=== PATIENT | female | born 1960 | race Caucasian/White ===

== ENCOUNTER → 2016-10-30 | Outpatient (CLI) | payer BC ==
--- NOTE | 2016-10-31 10:19 | HP ---
CHIEF COMPLAINT: The patient is here for her routine gynecologic exam. HPI: This is a 55-year-old G0 with an LMP of 1999. The patient states it has been about 15 years since her last pelvic exam. She did have a mammogram about one year ago which was benign. The patient states she has noticed some vulvar pruritus for about three weeks. She noticed this soon after riding a bike and she believes that the bike ride irritated this area. She states she notices it mostly near the clitoris. She denies any vaginal discharge or dysuria. She did try Nystatin cream but this did not seem to help. She denies any postmenopausal bleeding. PAST MEDICAL HISTORY: Chronic hypertension. MEDICATIONS: Clonidine 0.3 mg daily, losartan, potassium 100/12.5 mg one daily. She also used Nystatin cream as above. ALLERGIES: No known drug allergies. PAST SURGICAL HISTORY: Laparotomy for ovarian cysts in 1993. Cyst was drained from under the left breast in 1997. PAST AUTOMOTIVE PARTS COORDINATOR HISTORY: She does have a history of ovarian cysts in the past. She has no history of STDs. She has been menopausal since 1999. SOCIAL HISTORY: She quit smoking in 2006. She rarely drinks alcohol and thinks she drinks about 2 drinks per year. She states she previously was a heavy drinker but stopped her heavy drinking in about 2012. She denies drug use. She is but is not sexually active. She states this is because of her 's health issues. She does volunteer work. FAMILY HISTORY: Mother had CHF. Grandmother had diabetes. She denies family history of cancer of the breasts, uterus, ovaries or colon. REVIEW OF SYSTEMS: She has lost about 20 pounds over the last year with diet and exercise. She denies respiratory, cardiac or GI problems. PHYSICAL EXAM: Blood pressure 159/75, height 5'5", weight 190 pounds, temperature 96.9, pulse 72. This is a well-developed, heavyset white female who is alert and oriented x3, in no acute distress. HEENT: Within normal limits. NECK: Supple without mass or thyromegaly. CHEST AND LUNGS: Clear to auscultation. HEART: Regular rate and rhythm. BREASTS: Without mass or discharge. AXILLARY: Negative for adenopathy. BACK: Negative for CVA tenderness. ABDOMEN: Soft, nontender without palpable masses. PELVIC EXAM: Reveals mild generalize atrophy. There is erythema in the area of the clitoris and the anterior part of the labia. There is no ulcerations. There is a small amount of whitish cream in the area of the clitoris consistent with her Nystatin use. Cervix and vagina appear normal. There is no unusual discharge. There is mild to moderate atrophy in the vagina. There is no evidence of prolapse. The uterus is mid position, nongravitized and nontender. There are no palpable adnexal masses or tenderness. RECTOVAGINAL EXAM: Negative for mass or tenderness and is negative for occult blood. EXTREMITIES: Nontender. IMPRESSION: 1. 55-year-old menopausal female with vulvar and periclitoral inflammation. This is nonspecific vulvitis with associated genital atrophy. 2. No evidence of gabby vaginitis. Differential diagnosis include Lichen sclerosis although I doubt this because there is not significant pallor or leukoplakia. PLAN: 1. A Pap smear was performed. 2. Self breast examination was discussed. 3. Mammogram is due and a slip is given to the patient for this. 4. Trial of Kenalog 0.1% cream b.i.d. x1 week then p.r.n. She will also use a small amount of petroleum jelly at times other than the times she will be applying Kenalog cream. She will use this as a protective layer. I have also asked her to avoid scratching and avoid over washing. 5. She will call if symptoms are not improving within about 2-3 weeks. If symptoms are not improving she will return for re-evaluation and possible vulvar biopsy. 6. She will return in one year and p.r.n. EDGARDOD
== END ==
LOC: WWCWWP 12:34
PROVIDERS: ATTEND Obstetrics & Gynecology
DX: Z01.419 Encounter for gynecological examination (general) (routine) without abnormal findings (principal)

== ENCOUNTER → 2020-06-21 | Outpatient (CLI) | payer BC ==
--- NOTE | 2020-06-21 14:39 | US ---
EXAMINATION TYPE: US abdomen complete DATE OF EXAM: 06/21/2020 COMPARISON: NONE CLINICAL HISTORY: 59-year-old female R16.0 Hepatomegaly. TECHNIQUE: Multiple sonographic images of the abdomen are obtained. FINDINGS: EXAM MEASUREMENTS: Liver Length: 17 cm Gallbladder Wall: .2 cm CBD: .4 cm Spleen: 11 cm Right Kidney: 10.5 x 3.7 x 4.2 cm Left Kidney: 12.2 x 4.5 x 4.2 cm Pancreas: Suboptimal visualization of the pancreatic head and tail due to shadowing from bowel gas. Visualized pancreatic body shows no gross abnormality. Liver: Borderline in size. Increased echogenicity. No focal lesion seen. Gallbladder: No stones seen Evidence for sonographic Rendon's sign: No CBD: wnl Spleen: wnl Right Kidney: wnl Left Kidney: wnl Upper IVC: wnl Abd Aorta: wnl IMPRESSION: 1. Borderline sized liver (17.0 cm) with moderate hepatic steatosis. 2. No gallstones or biliary ductal dilatation.
== END | disposition home or self-care (01) ==
LOC: RADUSWWP 08:46
PROVIDERS: ATTEND Family Medicine
DX: K76.0 Fatty (change of) liver, not elsewhere classified (principal)
CPT/HCPCS: 76700

== ENCOUNTER → 2020-08-30 | Outpatient (CLI) | payer BC ==
[2020-08-30 10:34] VITALS: BP 164/78; PULSE 71; RESP 18; TEMP 98.3
--- NOTE | 2020-08-30 11:18 | P.HPOB ---
History of Present Illness H&P Date: 08/30/20 Chief Complaint: The patient is here for her routine gynecologic exam and ma mmogram. This is a 59-year-old G0 with an LMP of 2000. The patient is without gynecologic complaints and denies any postmenopausal bleeding. Review of Systems She has lost about 4 pounds over the past 4 years. She states she has been having difficulty losing weight. Respiratory: Occasional nasal drainage. She attributes this to the humidity. She denies cardiac or GI problems. Past Medical History Past Medical History: Diabetes Mellitus, Hypertension Additional Past Medical History / Comment(s): Type 2 diabetes. PAST ELECTRONIC SEMICONDUCTOR PROCESSOR HISTORY: She has no history of STDs. History of Any Multi-Drug Resistant Organisms: None Reported Additional Past Surgical History / Comment(s): Laparotomy for ovarian cysts in 1993. Cyst drained from the left breast in 1997. Past Psychological History: No Psychological Hx Reported Smoking Status: Former smoker Past Alcohol Use History: Rare (2 per year) Additional Past Alcohol Use History / Comment(s): Quit smoking in 2006. Past Drug Use History: None Reported Additional History: She is but is not sexually active and states this is because of her 's health issues. She does do some volunteer work and otherwise does not work outside of the home. - Past Family History Mother Family Medical History: Congestive Heart Failure (CHF) Additional Family Medical History / Comment(s): No family history of cancer of the breast, uterus, ovaries, or colon. A grandmother had diabetes. Medications and Allergies Home Medications Medication Instructions Recorded Confirmed Type Losartan Potassium 100 mg PO HS 08/30/20 08/30/20 History Pioglitazone [Actos] 15 mg PO DAILY 08/30/20 08/30/20 History amLODIPine [Norvasc] 10 mg PO DAILY 08/30/20 08/30/20 History cloNIDine HCL [Catapres] 0.3 mg PO HS 08/30/20 08/30/20 History metFORMIN HCL 1,000 mg PO BID 08/30/20 08/30/20 History Allergies Allergy/AdvReac Type Severity Reaction Status Date / Time No Known Allergies Allergy Unverified 08/30/20 10:29 Exam Vital Signs Temp Pulse Resp BP Pulse Ox 08/30/20 10:31 98.3 F 71 18 164/78 98 Intake and Output 08/29/20 08/30/20 08/30/20 22:59 06:59 14:59 Other: Weight 84.368 kg Height 5 feet 4-1/2 inches, weight 186 pounds, BMI 31.9. This is a well-developed well-nourished white female who is alert and oriented times 3 in no acute distress. HEENT: Within normal limits. NECK: Supple without mass or thyromegaly. CHEST AND LUNGS: Clear to auscultation. HEART: Regular rate and rhythm. BREASTS: Are without mass or discharge. AXILLARY EXAM: Negative for adenopathy. BACK: Negative for CVA tenderness. ABDOMEN: Soft, nontender, without palpable masses. PELVIC EXAM: Normal external genitalia with mild atrophy. Cervix and vagina appear normal with mild to moderate atrophy. The cervix is somewhat stenotic secondary to atrophy. There is no unusual discharge. There is no evidence of p rolapse. The uterus is midposition, nongravid size and nontender. There are no palpable adnexal masses or tenderness. RECTAL EXAM: Rectovaginal exam is negative for mass or tenderness and is negative for occult blood. EXTREMITIES: Nontender. IMPRESSION: 1. 59-year-old menopausal female with normal gynecologic exam. 2. History of osteopenia. 3. Elevated blood pressure with history of chronic hypertension. PLAN: 1. Pap smear cotest was performed. 2. Self breast awareness was discussed with the patient. 3. Screening mammogram will be done today. 4. Osteoporosis prevention was discussed. I have stressed the importance of adequate calcium, vitamin D and regular exercise. Recommended amounts of calcium and vitamin D were also discussed. Bone density testing was recommended since her last one was in 2016. The order slip was given to the patient for this. 5. She has completed her Covid vaccination series. 6. She has decided to do colorectal cancer screening with Cologuard which was done in 2020. She will continue to have colorectal cancer screening through her PCP. 7. She was advised to return in one year for her annual well woman exam.
--- NOTE | 2020-09-01 08:45 | MM ---
Reason for exam: screening (asymptomatic). Last mammogram was performed 4 years and 10 months ago. History: Patient is postmenopausal, history of other cancer, and is nulliparous. Physical Findings: A clinical breast exam by your physician is recommended on an annual basis and results should be correlated with mammographic findings. MG Screening Mammo w CAD Bilateral CC and MLO view(s) were taken. Prior study comparison: October 17, 2015, bilateral MG screening mammo w CAD. June 01, 2013, bilateral digital screening mammo w/CAD. There are scattered fibroglandular densities. There is chronic nodularity in the left breast. No significant changes when compared with prior studies. ASSESSMENT: Benign, BI-RAD 2 RECOMMENDATION: Routine screening mammogram of both breasts in 1 year.
--- NOTE | 2020-09-06 13:29 | P.PN ---
Progress Note - Text Progress Note Date: 09/06/20 OUTPATIENT FOLLOW-UP NOTE TEST(S)/RESULTS: Test results from 08/30/2020 include negative Pap smear with negative high risk HPV (negative cotest) and benign mammogram. METHOD OF NOTIFICATION: A message with these results was left on the patient's voicemail. PATIENT COMMENTS: DIAGNOSIS: Negative Pap smear cotest and benign mammogram. DISCUSSION: A message was left on the patient's voice mail that I will call her with bone density testing when I get the results after it is done. She was given an order slip on her recent visit. PLAN: The patient is to return in one year for her annual well woman exam.
== END ==
LOC: WWCWWP 10:17
PROVIDERS: ATTEND Obstetrics & Gynecology
DX: Z01.419 Encounter for gynecological examination (general) (routine) without abnormal findings (principal); E11.9 Type 2 diabetes mellitus without complications; I10 Essential (primary) hypertension; Z87.39 Personal history of other diseases of the musculoskeletal system and connective tissue; Z79.84 Long term (current) use of oral hypoglycemic drugs; Z79.899 Other long term (current) drug therapy; Z12.31 Encounter for screening mammogram for malignant neoplasm of breast; Z87.891 Personal history of nicotine dependence
CPT/HCPCS: 77067

== ENCOUNTER → 2023-04-09 | Outpatient (CLI) | payer BC ==
[2023-04-09 14:58] VITALS: BP 122/72; PULSE 72; RESP 17
--- NOTE | 2023-04-09 15:11 | P.HPOB ---
History of Present Illness H&P Date: 04/09/23 Chief Complaint: The patient is here for her routine gynecologic exam and ma mmogram. This is a 62-year-old G0 with an LMP of 2000. The patient is without gynecologic complaints and denies any postmenopausal bleeding. Review of Systems The patient has gained 10 pounds over the last year. She denies respiratory, cardiac, or G.I. problems. Past Medical History Past Medical History: Diabetes Mellitus, Hypertension Additional Past Medical History / Comment(s): Type 2 diabetes. 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 History of Any Multi-Drug Resistant Organisms: None Reported Additional Past Surgical History / Comment(s): Laparotomy for ovarian cysts in 1993. Cyst drained from the left breast in 1997. Past Psychological History: No Psychological Hx Reported Smoking Status: Former smoker Past Alcohol Use History: Rare (1 drink per year.) Additional Past Alcohol Use History / Comment(s): Quit smoking in 2006. Past Drug Use History: None Reported Additional History: She is but is not sexually active because her 's health issues. She has done volunteer work, otherwise does not work outside of the home. - Past Family History Mother Family Medical History: Congestive Heart Failure (CHF) Additional Family Medical History / Comment(s): No family history of cancer of the breast, uterus, ovaries, or colon. A grandmother had diabetes. Medications and Allergies Home Medications Medication Instructions Recorded Confirmed Type Pioglitazone [Actos] 15 mg PO DAILY 08/30/20 04/09/23 History amLODIPine [Norvasc] 10 mg PO DAILY 08/30/20 04/09/23 History cloNIDine HCL [Catapres] 0.3 mg PO HS 08/30/20 04/09/23 History metFORMIN HCL 1,000 mg PO BID 08/30/20 04/09/23 History Metoprolol Succinate (ER) [Toprol 25 mg PO DAILY 04/09/23 04/09/23 History XL] Valsartan/Hydrochlorothiazide 1 tab PO DAILY 04/09/23 04/09/23 History [Valsartan-Hctz 320-25 mg Tab] Allergies Allergy/AdvReac Type Severity Reaction Status Date / Time No Known Allergies Allergy Unverified 04/09/23 14:30 Exam Vital Signs Pulse Resp BP Pulse Ox 04/09/23 14:33 72 17 122/72 98 Intake and Output 04/09/23 04/09/23 04/09/23 06:59 14:59 22:59 Other: Weight 88.904 kg Height 5 feet 3 inches, weight 196 pounds, BMI 34.7. Temperature was refused by the patient. This is a well-developed well-nourished white female who is alert and oriented times 3 in no acute distress. HEENT: Within normal limits. NECK: Supple without mass or thyromegaly. CHEST AND LUNGS: Clear to auscultation. HEART: Regular rate and rhythm. BREASTS: Are without mass or discharge. AXILLARY EXAM: Negative for adenopathy. BACK: Negative for CVA tenderness. ABDOMEN: Soft, nontender, without palpable masses. PELVIC EXAM: Normal external genitalia with mild to moderate atrophy. Cervix and vagina appear normal mild to moderate atrophy. There is no unusual discharge. There is no evidence of prolapse. The uterus is midposition, nongravid size and nontender. There are no palpable adnexal masses or tenderness. RECTAL EXAM: Rectovaginal exam is negative for mass or tenderness and is negative for occult blood. EXTREMITIES: Nontender. IMPRESSION: 1. 62-year-old menopausal female with normal gynecologic exam. 2. History of osteopenia. PLAN: 1. Pap smear was deferred since she had a negative Pap smear cotest on 10/2020. 2. Self breast awareness was discussed with the patient. We have also discussed symptoms associated with inflammatory breast cancer. 3. Screening mammogram will be done today. 4. Osteoporosis prevention was discussed. I have stressed the importance of adequate calcium, vitamin D and regular exercise. Recommended amounts of calcium and vitamin D were also discussed. Bone density test will be done today. 5. Colorectal cancer screening was done with Cologuard testing in 2022 and the patient states this was negative. 6. She was advised to return in one year for her annual well woman exam.
--- NOTE | 2023-04-09 16:02 | MM ---
Reason for Exam: Screening (asymptomatic). Last mammogram was performed 2 year(s) and 7 month(s) ago. Patient History: Menarche at age 14. Patient has no children. Postmenopausal. Other cancer. Risk Values: Marisela 5 year model risk: 1.6%. NCI Lifetime model risk: 7.9%. Prior Study Comparison: 06/01/2013 Bilateral Screening Mammogram, [facility]. 10/17/2015 Bilateral Screening Mammogram, [facility]. 08/30/2020 Bilateral Screening Mammogram, [facility]. Tissue Density: The breast tissue is heterogeneously dense. This may lower the sensitivity of mammography. Findings: Analyzed By CAD. There is no suspicious group of microcalcifications or new suspicious mass. Benign-appearing calcifications bilaterally. Overall Assessment: Benign, BI-RAD 2 Management: Screening Mammogram of both breasts in [address] [facility] will attempt to contact patient to return for supplemental views and ultrasound if indicated. Patient should continue monthly self-breast exams. A clinical breast exam by your physician is recommended on an annual basis. This exam should not preclude additional follow-up of suspicious palpable abnormalities. Note on Marisela scores and lifetime risk: 1. A Marisela score greater than 3% is considered moderate risk. If this is the case, consider specialist referral to assess eligibility for a risk reducing agent. 2. If overall lifetime risk for the development of breast cancer is 20% or higher, the patient may qualify for future screening with alternating mammogram and breast MRI. Electronically signed and approved by: Vignesh Duran DO
--- NOTE | 2023-04-10 18:26 | BD ---
EXAMINATION TYPE: Axial Bone Density DATE OF EXAM: 04/09/2023 CLINICAL HISTORY: 62 years old Female. ICD-10 CODE: Z78.0 POST MENOPAUSAL WITHOUT HRT Height: 63.5 Weight: 192.6 FRAX RISK QUESTIONS: Alcohol (3 or more units per day): no Family History (Parent hip fracture): no Glucocorticoids (More than 3mos): no History of Fracture in Adulthood: Ankle Secondary Osteoporosis: 1. Type 1 Diabetes: no 2. Hyperthyroidism: no 3. Menopause before 45: yes 4. Malnutrition: no 5. Chronic liver disease: Fatty Liver Rheumatoid Arthritis: no Current Tobacco Use: no RISK FACTORS HISTORY OF: Hip Fracture (Right/Left): no Spine Fracture: no History of Wrist Fracture: no Surgery to Spine/Hip(right/left)/Wrist (right/left): no Family History of Osteoporosis: Mother Active: no Diet low in dairy products/other sources of calcium: no Postmenopausal woman: yes Take estrogen and/or progesterone medications: no Lost more than 2 inches in height since high school: no Frequent falls: no Poor Health: no Hyperparathyroidism: no Adrenal Insufficiency: no MEDICATIONS: Prednisone or other steroids: no Thyroid Medications: no Osteoporosis Medication no Additional Medications: BP Meds x3, Vit D, Metformin, COQ10 , Potassium, Tumeric, Zinc Additional History: EXAM MEASUREMENTS: Bone mineral densitometry was performed using the [employer] System. Bone mineral density as measured about the Lumbar spine is: ----- L1-L4(G/cm2): 1.116 T Score Values are as follows: ----- L1: 0.0 ----- L2: -0.3 ----- L3: -1.3 ----- L4: -0.6 ----- L1-L4: -0.5 Z Score Values are as follows: ----- L1: 0.6 ----- L2: 0.3 ----- L3: -0.8 ----- L4: 0.0 ----- L1-L4: 0.0 Bone mineral density has: increased 6.2 % since study of: 10/17/2015 Bone mineral density about the R hip (g/cm2): 0.781 Bone mineral density about the L hip (g/cm2): 0.878 T Score values are as follows: -----R Neck: -2.3 -----L Neck: -1.7 -----R Total: -1.8 -----L Total: -1.0 Z Score values are as follows: -----R Neck: -1.5 -----L Neck: -0.9 -----R Total: -1.3 -----L Total: -0.6 Bone mineral density has: decreased -11.9 % since study of: 10/17/2015 FRAX%s: The graph provided illustrates a 10.4% chance for a major osteoporotic fx and a 1.7% chance f or the hips probability for fx in 10 years time. IMPRESSION: Osteopenia (T Score between -2.5 and -1). There is slightly increased risk of fracture and the patient may be considered for treatment. Re-Screen 2-5 years. NOTE: T-SCORE=SD OF THE YOUNG ADULT MEAN.
== END ==
LOC: WWCWWP 14:24
PROVIDERS: ATTEND Obstetrics & Gynecology
DX: Z12.31 Encounter for screening mammogram for malignant neoplasm of breast (principal); M85.80 Other specified disorders of bone density and structure, unspecified site; E11.9 Type 2 diabetes mellitus without complications; I10 Essential (primary) hypertension; Z79.84 Long term (current) use of oral hypoglycemic drugs; Z78.0 Asymptomatic menopausal state; Z79.899 Other long term (current) drug therapy; Z87.891 Personal history of nicotine dependence
CPT/HCPCS: 77063; 77067; 77080